=== PATIENT | male | born 1985 | race Caucasian/White ===

== ENCOUNTER 2016-12-27 11:45 | Emergency (ER) | payer OTHER ==
[~2016-12-27] VITALS: Ht 172.7 cm; Wt 92.3 kg
[2016-12-27 11:49] VITALS: TEMP 36.7; Ht 172.7 cm; Wt 92.3 kg
--- NOTE | 2016-12-27 12:12 | EMERGENCY ROOM VISIT NOTE ---
History Report prepared by [place]: Antonio Telles Under the Supervision of: Dr. Mata Hunter M.D. First contact with patient: 11:54 Chief Complaint: HEADACHE Stated Complaint: SHARP HEADACHE History of Present Illness The patient is a 31 year old [place] male with a past medical history of HLD who presents to the ED with a cc of a waxing and waning headache beginning 2300 last night. Positive photophobia. Negative vomiting, numbness, nausea, cough, fevers, chills, abdominal pain. Patient notes that he had to cut his workout yesterday in half because didn't eat lunch and felt lightheaded. He says that a few hours later had a hint of a headache, and then went out for a drink of scotch and had a glass of water. The pain proceeded to worsen late last night. The patient notes that he had Acetaminophen overnight, which helped the pain a bit. Overnight rates pain as a 9/10. Pain worsened with shaking head. He went to [facility] and sent here. Patient notes headache is getting a bit better. Source of History: patient Onset: 2300 last night Position: head Symptom Intensity: 9/10 overnight Timing: waxes/wanes Modifying Factors (Worsening): movement Associated Symptoms: No fevers, No chills, No cough, No nausea, No vomiting , No abdominal pain Note: Photophobia. Review of Systems See HPI for pertinent positives and negatives. A total of ten systems were reviewed and were otherwise negative. Past Medical & Surgical Medical Problems: (1) HLD (hyperlipidemia) Family History No significant family history Social History Smoking Status: Current Some Day Smoker Alcohol Use: occasionally Drug Use: none Marital Status: Housing Status: lives with family Occupation Status: employed Current/Historical Medications No Active Prescriptions or Reported Meds Allergies Coded Allergies: Sulfa Antibiotics (Verified Allergy, Unknown, rash, swelling, 12/27/16) Physical Exam Vital Signs Date Time Temp Pulse Resp B/P (MAP) Pulse Ox O2 Delivery O2 Flow Rate FiO2 12/27/16 14:06 68 16 123/75 99 Room Air 12/27/16 11:49 36.7 83 18 148/96 100 Room Air Physical Exam GENERAL: Awake, alert, well-appearing, NAD HENT: Normocephalic, atraumatic. EYES: Normal conjunctiva. Sclera non-icteric. NECK: Supple. No nuchal rigidity. FROM. RESPIRATORY: CTAB, no rhonchi, wheezing, crackles CARDIAC: RRR, no MRG ABDOMEN: Soft, NTND, BS+ MSK: No chest wall TTP, no LE edema. Full neck rom. NEURO: GCS 15, CN 2-12 intact, 5/5 upper and lower ext strength, no pronator drift, good finger to nose, good heel to barton, no sensory deficit, moves all 4s on command. No signs of meningismus. SKIN: No rash or jaundice noted. Medical Decision & Procedures ER Provider Diagnostic Interpretation: CT: Radiology results as stated below per my review and radiologist interpretation CT ANGIOGRAM OF THE BRAIN COMBO; CT ANGIOGRAM OF THE NECK CLINICAL HISTORY: Headache. COMPARISON STUDY: No priors. TECHNIQUE: Unenhanced axial CT scan of the brain is performed. Subsequently, following the IV administration of 94 of Optiray 320, CT angiogram of the head and neck was performed from the aortic arch to the vertex. Images are reviewed in the axial, sagittal, and coronal planes. 3-D MIPS images are created and assessed. IV contrast was administered without complication. All measurements were calculated based on NASCET criteria. A dose lowering technique was utilized adhering to the principles of ALARA. CT DOSE: 1149.55 mGy.cm FINDINGS: Brain parenchyma: The brain parenchyma is normal in appearance. There is no hemorrhage, mass effect, or evidence of acute territorial ischemia by CT criteria. There is no evidence of enhancing mass lesion on the angiogram phase images. The ventricles, sulci, and cisterns are normal in configuration. Cornell-white matter differentiation is preserved. No extra-axial fluid collection is seen. Thoracic aorta: Visualized portions of the thoracic aorta are normal in caliber. The aortic arch demonstrates standard 3-vessel anatomy. Right carotid arterial system: The right common carotid artery is widely patent, as are the right internal and external carotid arteries. Left carotid arterial system: The left common carotid artery is widely patent, as are the left internal and external carotid arteries. Vertebral arteries: Widely patent bilaterally. The right vertebral artery is dominant. The left vertebral artery is diminutive. Subclavian arteries: Widely patent bilaterally. Intracranial vasculature: There is origin of the left posterior cerebral artery The internal carotid arteries are patent at the skull base, as are the anterior and middle cerebral arteries bilaterally. The vertebrobasilar system and posterior cerebral arteries are widely patent. The right vertebral artery is dominant. There is no aneurysm, high-grade stenosis, or focal vessel cut off seen throughout the intracranial circulation. Jugular veins: Widely patent bilaterally. Dural sinuses: Patent. Lung apices: Partially visualized upper lobe lung parenchyma appears clear. Soft tissues: The visualized pharyngeal soft tissues are normal in appearance noting angiographic phase technique. The oropharyngeal airway appears widely patent. The salivary and thyroid glands are normal in appearance. No cervical lymphadenopathy is seen. Skeletal structures: The calvarium appears intact. The cervical spine is within normal limits. Sinuses and mastoids: The paranasal sinuses are clear. The mastoid air cells are well pneumatized. IMPRESSION: 1. No acute intracranial abnormality. 2. Unremarkable CT angiogram of the brain. 3. Unremarkable CT angiogram of the neck. Electronically signed by: Elliot Zepeda M.D. 12/27/2016 2:16 PM Dictated Date/Time: 12/27/2016 2:[address] ANGIOGRAM OF THE BRAIN COMBO; CT ANGIOGRAM OF THE NECK CLINICAL HISTORY: Headache. COMPARISON STUDY: No priors. TECHNIQUE: Unenhanced axial CT scan of the brain is performed. Subsequently, following the IV administration of 94 of Optiray 320, CT angiogram of the head and neck was performed from the aortic arch to the vertex. Images are reviewed in the axial, sagittal, and coronal planes. 3-D MIPS images are created and assessed. IV contrast was administered without complication. All measurements were calculated based on NASCET criteria. A dose lowering technique was utilized adhering to the principles of ALARA. CT DOSE: 1149.55 mGy.cm FINDINGS: Brain parenchyma: The brain parenchyma is normal in appearance. There is no hemorrhage, mass effect, or evidence of acute territorial ischemia by CT criteria. There is no evidence of enhancing mass lesion on the angiogram phase images. The ventricles, sulci, and cisterns are normal in configuration. Cornell-white matter differentiation is preserved. No extra-axial fluid collection is seen. Thoracic aorta: Visualized portions of the thoracic aorta are normal in caliber. The aortic arch demonstrates standard 3-vessel anatomy. Right carotid arterial system: The right common carotid artery is widely patent, as are the right internal and external carotid arteries. Left carotid arterial system: The left common carotid artery is widely patent, as are the left internal and external carotid arteries. Vertebral arteries: Widely patent bilaterally. The right vertebral artery is dominant. The left vertebral artery is diminutive. Subclavian arteries: Widely patent bilaterally. Intracranial vasculature: There is origin of the left posterior cerebral artery The internal carotid arteries are patent at the skull base, as are the anterior and middle cerebral arteries bilaterally. The vertebrobasilar system and posterior cerebral arteries are widely patent. The right vertebral artery is dominant. There is no aneurysm, high-grade stenosis, or focal vessel cut off seen throughout the intracranial circulation. Jugular veins: Widely patent bilaterally. Dural sinuses: Patent. Lung apices: Partially visualized upper lobe lung parenchyma appears clear. Soft tissues: The visualized pharyngeal soft tissues are normal in appearance noting angiographic phase technique. The oropharyngeal airway appears widely patent. The salivary and thyroid glands are normal in appearance. No cervical lymphadenopathy is seen. Skeletal structures: The calvarium appears intact. The cervical spine is within normal limits. Sinuses and mastoids: The paranasal sinuses are clear. The mastoid air cells are well pneumatized. IMPRESSION: 1. No acute intracranial abnormality. 2. Unremarkable CT angiogram of the brain. 3. Unremarkable CT angiogram of the neck. Electronically signed by: Elliot Zepeda M.D. 12/27/2016 2:16 PM Dictated Date/Time: 12/27/2016 2:06 PM Laboratory Results 12/27/16 12:40 Red Blood Count 4.96, Mean Corpuscular Volume 84.9, Mean Corpuscular Hemoglobin 28.8, Mean Corpuscular Hemoglobin Concent 34.0, Mean Platelet Volume 9.1, Neutrophils (%) (Auto) 49.3, Lymphocytes (%) (Auto) 36.1, Monocytes (%) (Auto) 10.9, Eosinophils (%) (Auto) 2.9, Basophils (%) (Auto) 0.4, Neutrophils # (Auto ) 4.60, Lymphocytes # (Auto) 3.37, Monocytes # (Auto) 1.02, Eosinophils # (Auto ) 0.27, Basophils # (Auto) 0.04 12/27/16 12:40 Test 12/27/16 12:40 12/27/16 12:47 White Blood Count 9.34 K/uL (4.8-10.8) Red Blood Count 4.96 M/uL (4.7-6.1) Hemoglobin 14.3 g/dL (14.0-18.0) Hematocrit 42.1 % (42-52) Mean Corpuscular Volume 84.9 fL (80-100) Mean Corpuscular Hemoglobin 28.8 pg (25-34) Mean Corpuscular Hemoglobin Concent 34.0 g/dl (32-36) Platelet Count 360 K/uL (130-400) Mean Platelet Volume 9.1 fL (7.4-10.4) Neutrophils (%) (Auto) 49.3 % Lymphocytes (%) (Auto) 36.1 % Monocytes (%) (Auto) 10.9 % Eosinophils (%) (Auto) 2.9 % Basophils (%) (Auto) 0.4 % Neutrophils # (Auto) 4.60 K/uL (1.4-6.5) Lymphocytes # (Auto) 3.37 K/uL (1.2-3.4) Monocytes # (Auto) 1.02 K/uL (0.11-0.59) Eosinophils # (Auto) 0.27 K/uL (0-0.5) Basophils # (Auto) 0.04 K/uL (0-0.2) RDW Standard Deviation 47.6 fL (36.4-46.3) RDW Coefficient of Variation 15.4 % (11.5-14.5) Immature Granulocyte % (Auto) 0.4 % Immature Granulocyte # (Auto) 0.04 K/uL (0.00-0.02) Prothrombin Time 10.0 SECONDS (9.0-12.0) Prothromb Time International Ratio 0.9 (0.9-1.1) Activated Partial Thromboplast Time 26.1 SECONDS (21.0-31.0) Partial Thromboplastin Ratio 1.0 Est Creatinine Clear Calc Drug Dose 132.6 ml/min Estimated GFR () 132.1 Estimated GFR (Non- 113.9 BUN/Creatinine Ratio 11.0 (10-20) Calcium Level 9.2 mg/dl (8.5-10.1) Lyme Disease IgG Antibody NEG (NEG) Lyme Disease IgM Antibody NEG (NEG) Bedside Hemoglobin 15.0 g/dl (14.0-18.0) Bedside Hematocrit 44 % (42-52) Bedside Sodium 139 mEq/L (135-144) Bedside Potassium 3.9 mEq/L (3.3-5.0) Bedside Chloride 102 mEq/L (101-112) Bedside Total CO2 27 mEq/l (24-31) Anion Gap 15.0 mmol/L (16-25) Bedside Blood Urea Nitrogen 9 mg/dl (7-18) Bedside Creatinine 0.8 mg/dl (0.6-1.3) Bedside Glucose (other) 80 mg/dl (70-99) Bedside Ionized Calcium (Sobia) 1.19 mmol/l (1.12-1.32) Laboratory results reviewed by me Medications Administered Medications (Trade) Dose Ordered Sig/Abbie Route Start Time Stop Time Status Last Admin Dose Admin Metoclopramide HCl (Reglan Inj) 10 mg NOW STAT IV 12/27/16 12:19 12/27/16 12:22 DC 12/27/16 13:09 10 MG Acetaminophen (Tylenol Tab) 1,000 mg NOW STAT PO 12/27/16 12:19 12/27/16 12:22 DC 12/27/16 13:08 1,000 MG Diphenhydramine HCl (Benadryl Inj) 50 mg NOW STAT IV 12/27/16 12:19 12/27/16 12:22 DC 12/27/16 13:09 50 MG Sodium Chloride 1,000 ml @ 999 mls/hr Q1H1M STAT IV 12/27/16 12:19 12/27/16 13:19 DC 12/27/16 13:20 999 MLS/HR Magnesium Sulfate (Magnesium Sulfate) 1 gm NOW STAT IV 12/27/16 12:19 12/27/16 12:22 DC 12/27/16 13:36 1 GM ECG Indication: other (headache) Rate (beats per minute): 65 Rhythm: normal sinus Findings: T-wave inversion (in 3 and AVF, no other TWI), other (normal intervals, normal axis, no sts changes) ED Course 1203: The patient was evaluated in room B3B. A complete history and physical exam was performed. 1359: I reevaluated the patient and he feels better. 1430: I reevaluated the patient and he is resting. Discussed results and discharge instructions: he verbalized understanding and agreement. The patient is ready for discharge. Medical Decision The patient is a 31 year old [place] male with a past medical history of HLD who presents to the ED with a cc of a waxing and waning headache beginning 2300 last night. Positive photophobia. Negative vomiting, numbness, nausea, cough, fevers, chills, abdominal pain. Differential diagnosis: Intracranial hemorrhage, intracranial mass, migraine headache, tension headache , sinusitis, meningitis Patient was seen and evaluated at the bedside. Patient did have pain after exercise so SAH was concerning; however, patient's pain was not present until after an hour after returning home from the gym. Patient was given symptomatic treatment and had CTAs of the head and neck completed. Patient's pain resolved patient was feeling much improved. Given time course w/ negative CTAs, less likely aneurysm, ICH, or SAH. Patient was given strict follow-up, discharge, return precautions as well as signs return to the emergency department. Patient was told to follow-up with his PCP as needed. Patient had no signs of meningismus had no neurologic deficits upon reassessment. Patient was able to ambulatory tolerate by mouth. Patient discharged home. Medication Reconcilliation Current Medication List: was personally reviewed by me No meds. Blood Pressure Screening Patient's blood pressure: Elevated blood pressure Blood pressure disposition: Elevated BP felt to be situational Impression Primary Impression: Encounter for smoking cessation counseling Additional Impression: Headache Scribe Attestation The scribe's documentation has been prepared under my direction and personally reviewed by me in its entirety. I confirm that the note above accurately reflects all work, treatment, procedures, and medical decision making performed by me. Departure Information Dispostion Home / Self-Care Prescriptions Ondasetron Odt (ZOFRAN ODT) 4 Mg Tab 4 MG SL Q6H for Nausea, #6 TAB Prov: Mata Hunter M.D. 12/27/16 Referrals No Doctor, Assigned (PCP) Patient Instructions ED Smoking Cessation, Headache Pain, My [facility] Additional Instructions Please return to the emergency department if you have worsening or recurrent symptoms not amenable to at-home treatment. Please call for a follow-up appointment with her primary care physician. Please take your medications as prescribed. If you have other concerns and/or complaints please feel free to also call your primary care physician's office or return the ED for further evaluation, management, and treatment. You may take 600 mg Ibuprofen every 6 hours as needed for pain with food for no more than 2 consecutive days. You may take tylenol 1000mg every 6 hours as needed for pain. You may take motrin and tylenol separately or at the same time. Take zofran for nausea. You have been examined and treated today on an emergency basis only. This is not a substitute for, or an effort to provide, complete comprehensive medical care. It is impossible to recognize and treat all injuries or illnesses in a single emergency department visit. It is therefore important that you follow up closely with [facility]. Call as soon as possible for an appointment. Thank you for your time and consideration. I look forward to speaking with you again soon. Please don't hesitate to call us if you have any questions. Work Instructions Return To Work: 1 day Problem Qualifiers Additional Impression: Headache Headache type: unspecified Headache chronicity pattern: acute headache Intractability: not intractable Qualified Codes: R51 - Headache
[2016-12-27] MEDS ORDERED: MAGNESIUM SULFATE 1GM / D5W 1 GM BAG IV STA (12:19)
[2016-12-27] MEDS ORDERED: SODIUM CHLORIDE 0.9% 1000ML 1,000 ML IV STA (12:19)
[2016-12-27] MEDS ORDERED: ACETAMINOPHEN 500 MG TAB PO STA (12:19)
[2016-12-27] MEDS ORDERED: DiphenhydrAMINE HCL 50 MG/ML VIAL IV STA (12:19)
[2016-12-27] MEDS ORDERED: METOCLOPRAMIDE HCL INJ 5 MG/ML 2 ML VIAL IV STA (12:19)
[2016-12-27] MEDS ORDERED: OPTIRAY 320 IV PRN (12:30)
[2016-12-27 13:00] LABS: ISTAT CREATININE 0.8 mg/dl (0.6-1.3); ISTAT IONIZED CALCIUM 1.19 mmol/l (1.12-1.32)
[2016-12-27 13:14] LABS: BASO % 0.4 %; BASO ABS # 0.04 K/uL (0-0.2); COMPLETE YES; EOS % 2.9 %; HEMATOCRIT 42.1 % (42-52); IG% 0.4 %; LYMPH % 36.1 %; LYMPH ABS # 3.37 K/uL (1.2-3.4); MEAN CELL VOLUME 84.9 fL (80-100); MEAN CORPUSCULAR HEMOGLOBIN 28.8 pg (25-34); MEAN PLATELET VOLUME 9.1 fL (7.4-10.4); MONO % 10.9 %; NEUT % 49.3 %; PLATELET COUNT 360 K/uL (130-400); RED BLOOD COUNT 4.96 M/uL (4.7-6.1); WHITE BLOOD COUNT 9.34 K/uL (4.8-10.8)
[2016-12-27 13:29] LABS: INR 0.9 (0.9-1.1)
[2016-12-27 13:37] LABS: CALCIUM 9.2 mg/dl (8.5-10.1); CREATININE 0.89 mg/dl (0.60-1.40); POTASSIUM 3.9 mmol/L (3.5-5.1)
[2016-12-27 14:15] LABS: LYME DISEASE AB IGG NEG (NEG); LYME DISEASE AB IGM NEG (NEG)
--- NOTE | 2016-12-27 14:18 | DIAGNOSTIC IMAGING REPORT ---
CT ANGIOGRAM OF THE BRAIN COMBO; CT ANGIOGRAM OF THE NECK CLINICAL HISTORY: Headache. COMPARISON STUDY: No priors. TECHNIQUE: Unenhanced axial CT scan of the brain is performed. Subsequently, following the IV administration of 94 of Optiray 320, CT angiogram of the head and neck was performed from the aortic arch to the vertex. Images are reviewed in the axial, sagittal, and coronal planes. 3-D MIPS images are created and assessed. IV contrast was administered without complication. All measurements were calculated based on NASCET criteria. A dose lowering technique was utilized adhering to the principles of ALARA. CT DOSE: 1149.55 mGy.cm FINDINGS: Brain parenchyma: The brain parenchyma is normal in appearance. There is no hemorrhage, mass effect, or evidence of acute territorial ischemia by CT criteria. There is no evidence of enhancing mass lesion on the angiogram phase images. The ventricles, sulci, and cisterns are normal in configuration. Cornell-white matter differentiation is preserved. No extra-axial fluid collection is seen. Thoracic aorta: Visualized portions of the thoracic aorta are normal in caliber. The aortic arch demonstrates standard 3-vessel anatomy. Right carotid arterial system: The right common carotid artery is widely patent, as are the right internal and external carotid arteries. Left carotid arterial system: The left common carotid artery is widely patent, as are the left internal and external carotid arteries. Vertebral arteries: Widely patent bilaterally. The right vertebral artery is dominant. The left vertebral artery is diminutive. Subclavian arteries: Widely patent bilaterally. Intracranial vasculature: There is origin of the left posterior cerebral artery The internal carotid arteries are patent at the skull base, as are the anterior and middle cerebral arteries bilaterally. The vertebrobasilar system and posterior cerebral arteries are widely patent. The right vertebral artery is dominant. There is no aneurysm, high-grade stenosis, or focal vessel cut off seen throughout the intracranial circulation. Jugular veins: Widely patent bilaterally. Dural sinuses: Patent. Lung apices: Partially visualized upper lobe lung parenchyma appears clear. Soft tissues: The visualized pharyngeal soft tissues are normal in appearance noting angiographic phase technique. The oropharyngeal airway appears widely patent. The salivary and thyroid glands are normal in appearance. No cervical lymphadenopathy is seen. Skeletal structures: The calvarium appears intact. The cervical spine is within normal limits. Sinuses and mastoids: The paranasal sinuses are clear. The mastoid air cells are well pneumatized. IMPRESSION: 1. No acute intracranial abnormality. 2. Unremarkable CT angiogram of the brain. 3. Unremarkable CT angiogram of the neck. Electronically signed by: Elliot Zepeda M.D. 12/27/2016 2:16 PM Dictated Date/Time: 12/27/2016 2:06 PM
[2016-12-27] MEDS ORDERED: ONDA4TAB10 SL (14:45)
[2016-12-27 14:57] VITALS: BP 115/71; PULSE 67; O2SAT 99
== END 2016-12-27 14:58 | disposition home or self-care (01) ==
LOC: C.EDB 11:47
DX: R51 Headache (principal); F17.210 Nicotine dependence, cigarettes, uncomplicated; H53.149 Visual discomfort, unspecified

== ENCOUNTER → 2017-06-03 | Outpatient (CLI) | payer OTHER ==
[~2017-06-03] MED LIST: ONDA4TAB10 SL
--- NOTE | 2017-06-03 10:43 | DIAGNOSTIC IMAGING REPORT ---
C-SPINE ROUTINE 4 OR 5 VIEWS CLINICAL HISTORY: Neck pain. Left upper extremity pain. No recent trauma. COMPARISON STUDY: CT atrophy of the neck December 27, 2016. FINDINGS: There is slight reversal of the normal cervical lordosis. Vertebral body heights are maintained. There is no fracture or suspicious lesion. Disc spaces are preserved. There is mild multilevel endplate osteophytosis. Bony neural foramen are intact. IMPRESSION: 1. No cervical spine fracture or subluxation. 2. Preserved disc spaces with minimal multilevel endplate osteophytosis. Mild multilevel degenerative changes of the cervical spine. Electronically signed by: Jose Enrique Herrera M.D. 06/03/2017 10:42 AM Dictated Date/Time: 06/03/2017 10:41 AM
[2017-06-03 11:14] LABS: BASO % 0.4 %; BASO ABS # 0.03 K/uL (0-0.2); EOS % 4.5 %; EOS ABS # 0.36 K/uL (0-0.5); HEMATOCRIT 41.8 % (42-52); HEMOGLOBIN 13.9 g/dL (14.0-18.0); IG# 0.02 K/uL (0.00-0.02); LYMPH % 37.3 %; MEAN CELL VOLUME 84.8 fL (80-100); MEAN CORPUSCULAR HEMOGLOBIN 28.2 pg (25-34); MEAN CORPUSCULAR HGB CONC 33.3 g/dl (32-36); MEAN PLATELET VOLUME 9.1 fL (7.4-10.4); MONO % 8.6 %; MONO ABS # 0.69 K/uL (0.11-0.59); NEUT ABS # 3.95 K/uL (1.4-6.5); PLATELET COUNT 337 K/uL (130-400); RED CELL DISTRIBUTION WIDTH CV 14.2 % (11.5-14.5); RED CELL DISTRIBUTION WIDTH SD 43.7 fL (36.4-46.3); WHITE BLOOD COUNT 8.05 K/uL (4.8-10.8)
[2017-06-03 11:48] LABS: ALBUMIN 3.7 gm/dl (3.4-5.0); ALT/SGPT 48 U/L (12-78); BLOOD UREA NITROGEN 7 mg/dl (7-18); CALCIUM 8.6 mg/dl (8.5-10.1); CARBON DIOXIDE 29 mmol/L (21-32); CHOLESTEROL 215 mg/dl (0-200); CREATININE 0.78 mg/dl (0.60-1.40); GLUCOSE 86 mg/dl (70-99); POTASSIUM 4.1 mmol/L (3.5-5.1); SODIUM 138 mmol/L (136-145)
[2017-06-03 11:58] LABS: ALKALINE PHOSPHATASE 85 U/L (45-117); AST/SGOT 31 U/L (15-37); LDL CHOLESTEROL CALCULATED 122 mg/dl
== END | disposition home or self-care (01) ==
LOC: C.LAB 09:24
PROVIDERS: ATTEND Nurse Practitioner Adult Health
DX: M54.2 Cervicalgia (principal)

== ENCOUNTER 2017-07-21 17:53 | Emergency (ER) | payer OTHER ==
[~2017-07-21] VITALS: Ht 172.7 cm; Wt 95.9 kg
[2017-07-21 18:12] VITALS: TEMP 36.7; Ht 172.7 cm; Wt 95.9 kg
[2017-07-21] MEDS ORDERED: ONDANSETRON INJ 2 MG/ML 2 ML VIAL IV STA (20:10)
[2017-07-21] MEDS ORDERED: SODIUM CHLORIDE 0.9% 500ML 500 ML IV STA (20:10)
[2017-07-21] MEDS ORDERED: DICYCLOMINE HCL 10 MG/ML 2 ML AMP IM ONE (20:15)
--- NOTE | 2017-07-21 20:15 | EMERGENCY ROOM VISIT NOTE ---
History Report prepared by [place]: Fadi Hill Under the Supervision of: Dr. Mata Hunter M.D. First contact with patient: 19:45 Chief Complaint: GI ASSESSMENT Stated Complaint: BLOOD IN STOOL,ABDOMEN CRAMPS Nursing Triage Summary: lower abdominal pain. having intermittent blood in stool for the past 3 weeks History of Present Illness The patient is a 31 year old male with a past medical history of HLD who presents to the ED with a cc of intermittent bloody stools beginning three weeks ago. He rates his discomfort as a 6/10 in severity. The patient states he went to his physician for his symptoms who did blood work. He reports his blood work showed his RBC went from 30 to 11 units and his platelet count went up. The patient states he went to get another blood test today with Hematology. He reports his construction foreman told him he was concerned with IBS and reported his iron levels were low. The patient states he went home and went to have a bowel movement today when he noticed the red blood was more prominent. The patient states he has had 8 bowel movements since 1400. Positive recent antibiotic use, chills, and lower abdominal pain. Negative blood thinning medication, urinary symptoms, nausea, vomiting, family history of colon cancer, recent travel, sick contact, surgeries, IBS history, and diverticulitis history. Source of History: patient Onset: three weeks ago Position: other (global) Symptom Intensity: 6/10 Quality: other (red blood) Timing: intermittent Associated Symptoms: + chills, + abdominal pain, No nausea, No vomiting, No urinary symptoms Review of Systems See HPI for pertinent positives and negatives. A total of ten systems were reviewed and were otherwise negative. Past Medical & Surgical Medical Problems: (1) HLD (hyperlipidemia) Family History No significant family history Social History Smoking Status: Never Smoker Alcohol Use: occasionally Drug Use: none Marital Status: Housing Status: lives with family Occupation Status: employed Allergies Coded Allergies: Sulfa Antibiotics (Verified Allergy, Unknown, rash, swelling, 12/27/16) Physical Exam Vital Signs Date Time Temp Pulse Resp B/P (MAP) Pulse Ox O2 Delivery O2 Flow Rate FiO2 07/21/17 22:54 94 18 131/69 96 Room Air 07/21/17 20:32 71 18 124/66 99 Room Air 07/21/17 18:12 36.7 109 18 112/66 100 Room Air Physical Exam GENERAL: Wearing glasses, awake, alert, well-appearing, NAD HENT: Normocephalic, atraumatic. EYES: Normal conjunctiva. Sclera non-icteric. NECK: Supple. No nuchal rigidity. FROM. RESPIRATORY: CTAB, no rhonchi, wheezing, crackles CARDIAC: RRR, no MRG ABDOMEN: Soft, suprapubic and left lower quadrant abdominal tenderness, ND, BS+ , negative obturator's, negative psoas. MSK: No chest wall TTP, no LE edema NEURO: GCS 15, CN 2-12 intact, moves all 4s on command SKIN: No rash or jaundice noted. RECTAL: Bright red blood. Heme positive. Medical Decision & Procedures ER Provider Diagnostic Interpretation: Radiology results as stated below per my review and radiologist interpretation: ABD/PELVIS IV CONTRAST ONLY CLINICAL HISTORY: 31 years-old Male presenting with bloody stool, diarrhea 4 weeks, abx use, suprapub/LLQ pain. TECHNIQUE: Multidetector CT of the abdomen and pelvis was performed after the administration of intravenous contrast. IV contrast: 116 mL of Optiray 320. A dose lowering technique was used consistent with the principles of ALARA (as low as reasonably achievable). COMPARISON: None. CT DOSE (mGy.cm): The estimated cumulative dose is 593.58 mGy.cm. FINDINGS: Gas Examiner topogram: Unremarkable. Lung bases: Minimal basilar opacities, likely atelectasis. Focal wedgelike opacity at the medial basal left lower lobe with venous drainage to the azygos vein likely implying a pulmonary sequestration. Normal heart size. No pericardial or pleural effusion. Liver: Normal morphology. No liver lesion. Patent hepatic vasculature. Biliary: No intrahepatic or extrahepatic biliary ductal dilatation. Normal gallbladder. Pancreas: Normal. Spleen: Normal. Adrenal glands: Normal. Kidneys and ureters: 9 mm dense lesion in the interpolar region of the right kidney (series 3 image 162), indeterminate. Remaining renal parenchyma normal. No nephrolithiasis. No hydronephrosis. No perinephric fat stranding. Ureters normal. Bladder: Incompletely evaluated secondary to underdistention. Pelvic organs: Prostate and seminal vesicles normal. Bowel: Mild wall thickening of the descending colon to the level of the rectum suggested. Mild wall thickening of the hepatic flexure. No pericolonic or perirectal fat infiltration. No bowel obstruction. Small bowel is normal-appearing. The appendix is normal. Peritoneal cavity: No free fluid or intraperitoneal gas. Lymph nodes: No enlarged lymph nodes in the abdomen or pelvis. Vasculature: Aorta and IVC patent and normal in caliber. Abdominal wall: Normal. Musculoskeletal: Normal. IMPRESSION: 1. Findings suggestive of mild colitis involving the descending colon to the rectum. Potential involvement of the hepatic flexure though the appearance may be due to underdistention. 2. 9 mm indeterminate right renal lesion. This may represent a hemorrhagic or proteinaceous cyst though a solid lesion cannot be excluded. Renal ultrasound to be considered for further evaluation. Electronically signed by: Nico Mace M.D. 07/21/2017 9:14 PM Dictated Date/Time: 07/21/2017 9:09 PM Laboratory Results 07/21/17 20:32 Red Blood Count 3.67, Mean Corpuscular Volume 79.6, Mean Corpuscular Hemoglobin 26.4, Mean Corpuscular Hemoglobin Concent 33.2, Mean Platelet Volume 8.0, Neutrophils (%) (Auto) 45.5, Lymphocytes (%) (Auto) 36.8, Monocytes (%) (Auto) 9.3, Eosinophils (%) (Auto) 7.9, Basophils (%) (Auto) 0.2, Neutrophils # (Auto) 3.94, Lymphocytes # (Auto) 3.19, Monocytes # (Auto) 0.81, Eosinophils # (Auto) 0.69, Basophils # (Auto) 0.02 07/21/17 20:32 Test 07/21/17 20:32 07/21/17 22:10 07/21/17 23:08 White Blood Count 8.68 K/uL (4.8-10.8) Red Blood Count 3.67 M/uL (4.7-6.1) Hemoglobin 9.7 g/dL (14.0-18.0) Hematocrit 29.2 % (42-52) Mean Corpuscular Volume 79.6 fL (80-100) Mean Corpuscular Hemoglobin 26.4 pg (25-34) Mean Corpuscular Hemoglobin Concent 33.2 g/dl (32-36) Platelet Count 409 K/uL (130-400) Mean Platelet Volume 8.0 fL (7.4-10.4) Neutrophils (%) (Auto) 45.5 % Lymphocytes (%) (Auto) 36.8 % Monocytes (%) (Auto) 9.3 % Eosinophils (%) (Auto) 7.9 % Basophils (%) (Auto) 0.2 % Neutrophils # (Auto) 3.94 K/uL (1.4-6.5) Lymphocytes # (Auto) 3.19 K/uL (1.2-3.4) Monocytes # (Auto) 0.81 K/uL (0.11-0.59) Eosinophils # (Auto) 0.69 K/uL (0-0.5) Basophils # (Auto) 0.02 K/uL (0-0.2) RDW Standard Deviation 39.4 fL (36.4-46.3) RDW Coefficient of Variation 13.5 % (11.5-14.5) Immature Granulocyte % (Auto) 0.3 % Immature Granulocyte # (Auto) 0.03 K/uL (0.00-0.02) Hypochromasia PRESENT Prothrombin Time 10.0 SECONDS (9.0-12.0) Prothromb Time International Ratio 1.0 (0.9-1.1) Activated Partial Thromboplast Time 23.6 SECONDS (21.0-31.0) Partial Thromboplastin Ratio 0.9 Anion Gap 7.0 mmol/L (3-11) Est Creatinine Clear Calc Drug Dose 126.5 ml/min Estimated GFR () 123.1 Estimated GFR (Non- 106.2 BUN/Creatinine Ratio 9.3 (10-20) Calcium Level 8.4 mg/dl (8.5-10.1) Phosphorus Level 4.3 mg/dl (2.5-4.9) Magnesium Level 1.9 mg/dl (1.8-2.4) Total Bilirubin 0.2 mg/dl (0.2-1) Direct Bilirubin < 0.1 mg/dl (0-0.2) Aspartate Amino Transf (AST/SGOT) 20 U/L (15-37) Alanine Aminotransferase (ALT/SGPT) 28 U/L (12-78) Alkaline Phosphatase 94 U/L (45-117) Total Protein 7.3 gm/dl (6.4-8.2) Albumin 3.2 gm/dl (3.4-5.0) Lipase 302 U/L (73-393) Urine Color YELLOW Urine Appearance CLEAR (CLEAR) Urine pH 5.0 (4.5-7.5) Urine Specific [place] > 1.045 (1.000-1.030) Urine Protein NEG (NEG) Urine Glucose (UA) NEG (NEG) Urine Ketones NEG (NEG) Urine Occult Blood NEG (NEG) Urine Nitrite NEG (NEG) Urine Bilirubin NEG (NEG) Urine Urobilinogen NEG (NEG) Urine Leukocyte Esterase NEG (NEG) Laboratory results reviewed by me Medications Administered Medications (Trade) Dose Ordered Sig/Abbie Route Start Time Stop Time Status Last Admin Dose Admin Sodium Chloride 500 ml @ 999 mls/hr Q31M STAT IV 07/21/17 20:10 07/21/17 20:40 DC 07/21/17 20:10 999 MLS/HR ED Course 2001: The patient was evaluated in room B10. A complete history and physical exam was performed. 2148: I discussed the patients case with Dr. Walton, [facility]. He reports the patient needs to follow up next week for a scope and should return to the ER if symptoms worsen. 2208: I reevaluated the patient. Discussed results and discharge instructions: He verbalized understanding and agreement. The patient is ready for discharge. Medical Decision Nursing notes reviewed. Ancillary studies and prior records reviewed. The patient is a 31 year old male with a past medical history of HLD who presents to the ED with a cc of intermittent bloody stools beginning three weeks ago. The patient's presentation and history were concerning for etiologies such as diverticulosis, AVM, coagulopathy, colitis, inflammatory bowel disease, malignancy, Emily-Mancini tear, esophagitis, peptic ulcer disease, variceal bleed, gastritis, epistaxis, fissure, hemorrhoids, as well as others were entertained. Patient was seen and evaluated the bedside. Patient had had 4 weeks of some associated diarrhea and had noticed some increased bright red blood per rectum. Patient denies any prior history of IBD or family history of IBD, colon cancer , or polyposis. Patient has not had a colonoscopy in the past. Patient was seen by Dr. Greco with hematology was scheduled for some IV iron treatments infusions as the patient does have a low MCV and some anemia. Patient does have bright red blood per rectum as evidenced. The patient was initially tachycardic. Patient does not take any blood thinning medications. Patient has been on some amoxicillin. Patient did have blood work completed along with CT of the abdomen pelvis. Patient's blood work did show worsening anemia. Patient is dropped approximately four-point and his hemoglobin since the end of May. The patient has felt fatigued but denies any dizziness, lightheadedness, presyncope or syncope. I did discuss the case with the on-call panel beater who agreed that the patient should be seen and would benefit from a colonoscopy. I do not believe the patient requires a stay at this time as the patient's vital signs are stable. He was given strict follow-up as well as return precautions and warning signs for which to return. Patient was deemed suitable for outpatient follow-up and treatment at this time. Patient was given strict follow-up, discharge, and return precautions. All questions were answered. Patient was deemed suitable for outpatient follow-up at this time. Patient agreed with the plan of care and was safely discharged home. Medication Reconcilliation Current Medication List: was personally reviewed by me Blood Pressure Screening Patient's blood pressure: Normal blood pressure Consults Time Called: 2140 Consulting Physician: Dr. Walton [facility] Returned Call: 2140 I discussed the patients case with Dr. Walton [facility]. He reports the patient needs to follow up next week for a scope and should return to the ER if symptoms worsen. Impression Primary Impression: Colitis Additional Impressions: Rectal bleeding Anemia Scribe Attestation The scribe's documentation has been prepared under my direction and personally reviewed by me in its entirety. I confirm that the note above accurately reflects all work, treatment, procedures, and medical decision making performed by me. Departure Information Dispostion Home / Self-Care Referrals Janny Mina .KEN (PCP) Patient Instructions Bleeding Rectal, My [facility] Additional Instructions Please return to the emergency department if you have worsening or recurrent symptoms not amenable to at-home treatment. Please call for a follow-up appointment with her primary care physician. Please take your medications as prescribed. If you have other concerns and/or complaints please feel free to also call your primary care physician's office or return the ED for further evaluation, management, and treatment. Please return if you have any dizziness, lightheadedness, shortness of breath, large-volume bright red blood per rectum or clots. Please follow-up with your panel beater. Take your medications as prescribed. You have been examined and treated today on an emergency basis only. This is not a substitute for, or an effort to provide, complete comprehensive medical care. It is impossible to recognize and treat all injuries or illnesses in a single emergency department visit. It is therefore important that you follow up closely with [facility], your PCP, and/or your specialist(s). Call as soon as possible for an appointment. Thank you for your time and consideration. I look forward to speaking with you again soon. Please don't hesitate to call us if you have any questions. Problem Qualifiers Additional Impressions: Anemia Anemia type: unspecified type Qualified Codes: D64.9 - Anemia, unspecified
[2017-07-21 20:44] LABS: HEMATOCRIT 29.2 % (42-52); HEMOGLOBIN 9.7 g/dL (14.0-18.0); MEAN CELL VOLUME 79.6 fL (80-100); MEAN CORPUSCULAR HEMOGLOBIN 26.4 pg (25-34); MEAN CORPUSCULAR HGB CONC 33.2 g/dl (32-36); PLATELET COUNT 409 K/uL (130-400); RED CELL DISTRIBUTION WIDTH CV 13.5 % (11.5-14.5); RED CELL DISTRIBUTION WIDTH SD 39.4 fL (36.4-46.3); WHITE BLOOD COUNT 8.68 K/uL (4.8-10.8)
[2017-07-21 20:56] LABS: PTT PATIENT 23.6 SECONDS (21.0-31.0)
[2017-07-21 21:05] LABS: BASO % 0.2 %; BASO ABS # 0.02 K/uL (0-0.2); EOS % 7.9 %; EOS ABS # 0.69 K/uL (0-0.5); IG# 0.03 K/uL (0.00-0.02); LYMPH % 36.8 %; LYMPH ABS # 3.19 K/uL (1.2-3.4); MONO % 9.3 %; MONO ABS # 0.81 K/uL (0.11-0.59); NEUT % 45.5 %; NEUT ABS # 3.94 K/uL (1.4-6.5)
[2017-07-21 21:07] LABS: ALBUMIN 3.2 gm/dl (3.4-5.0); BLOOD UREA NITROGEN 9 mg/dl (7-18); CALCIUM 8.4 mg/dl (8.5-10.1); CARBON DIOXIDE 25 mmol/L (21-32); CREATININE 0.95 mg/dl (0.60-1.40); GLUCOSE 90 mg/dl (70-99); LIPASE 302 U/L (73-393); POTASSIUM 3.9 mmol/L (3.5-5.1); SODIUM 140 mmol/L (136-145)
[2017-07-21 21:11] LABS: ALKALINE PHOSPHATASE 94 U/L (45-117); ALT/SGPT 28 U/L (12-78); AST/SGOT 20 U/L (15-37); PHOSPHORUS 4.3 mg/dl (2.5-4.9); TOTAL PROTEIN 7.3 gm/dl (6.4-8.2)
[2017-07-21] MEDS ORDERED: OPTIRAY 320 IV PRN (21:15)
--- NOTE | 2017-07-21 21:16 | DIAGNOSTIC IMAGING REPORT ---
ABD/PELVIS IV CONTRAST ONLY CLINICAL HISTORY: 31 years-old Male presenting with bloody stool, diarrhea 4 weeks, abx use, suprapub/LLQ pain. TECHNIQUE: Multidetector CT of the abdomen and pelvis was performed after the administration of intravenous contrast. IV contrast: 116 mL of Optiray 320. A dose lowering technique was used consistent with the principles of ALARA (as low as reasonably achievable). COMPARISON: None. CT DOSE (mGy.cm): The estimated cumulative dose is 593.58 mGy.cm. FINDINGS: Waiter Waitress topogram: Unremarkable. Lung bases: Minimal basilar opacities, likely atelectasis. Focal wedgelike opacity at the medial basal left lower lobe with venous drainage to the azygos vein likely implying a pulmonary sequestration. Normal heart size. No pericardial or pleural effusion. Liver: Normal morphology. No liver lesion. Patent hepatic vasculature. Biliary: No intrahepatic or extrahepatic biliary ductal dilatation. Normal gallbladder. Pancreas: Normal. Spleen: Normal. Adrenal glands: Normal. Kidneys and ureters: 9 mm dense lesion in the interpolar region of the right kidney (series 3 image 162), indeterminate. Remaining renal parenchyma normal. No nephrolithiasis. No hydronephrosis. No perinephric fat stranding. Ureters normal. Bladder: Incompletely evaluated secondary to underdistention. Pelvic organs: Prostate and seminal vesicles normal. Bowel: Mild wall thickening of the descending colon to the level of the rectum suggested. Mild wall thickening of the hepatic flexure. No pericolonic or perirectal fat infiltration. No bowel obstruction. Small bowel is normal-appearing. The appendix is normal. Peritoneal cavity: No free fluid or intraperitoneal gas. Lymph nodes: No enlarged lymph nodes in the abdomen or pelvis. Vasculature: Aorta and IVC patent and normal in caliber. Abdominal wall: Normal. Musculoskeletal: Normal. IMPRESSION: 1. Findings suggestive of mild colitis involving the descending colon to the rectum. Potential involvement of the hepatic flexure though the appearance may be due to underdistention. 2. 9 mm indeterminate right renal lesion. This may represent a hemorrhagic or proteinaceous cyst though a solid lesion cannot be excluded. Renal ultrasound to be considered for further evaluation. Electronically signed by: Nico Mace M.D. 07/21/2017 9:14 PM Dictated Date/Time: 07/21/2017 9:09 PM
[2017-07-21 22:54] VITALS: BP 131/69; PULSE 94; O2SAT 96
== END 2017-07-21 23:08 | disposition home or self-care (01) ==
LOC: C.EDB 17:54
DX: K52.9 Noninfective gastroenteritis and colitis, unspecified (principal); D64.9 Anemia, unspecified; E78.5 Hyperlipidemia, unspecified; Z88.2 Allergy status to sulfonamides

== ENCOUNTER → 2017-08-02 | Outpatient (CLI) | payer OTHER ==
--- NOTE | 2017-08-07 11:37 | POLYSOMNOGRAPH REPORT ---
CLINICAL DATA: A 31-year-old male with BMI of 32.4, referred by Janny Mina for fatigue, a family history of sleep apnea, a crowded airway, and obesity. On the evening of August 02, 2017, a home sleep apnea test was performed using a Jean Paul type III monitor. RECORDING RESULTS: Total recording time was 10 hours. The patient's monitoring time and estimated sleep time was 6.8 hours. RESPIRATORY DATA: Severe sleep apnea was documented. The GIGI was 43.5. There were 22 obstructive, 1 mixed, and 1 central apneic episodes. There were 271 hypopneic episodes. The longest respiratory event was 52 seconds. OXIMETRY DATA: Nocturnal hypoxemia was seen. Oxygen kenrick was 65%. Mean saturation was 91%. Time below 89% was 85 minutes. HEART RATE DATA: Heart rates ranged from 78-97 beats per minute. SNORING DATA: Snoring was recorded throughout the night. IMPRESSION: Severe sleep apnea/hypopnea with nocturnal hypoxemia. RECOMMENDATIONS: The patient may benefit with a repeat sleep study with CPAP, use of auto CPAP or sleep medicine consultation. Clinical correlation is needed. MARC
== END | disposition home or self-care (01) ==
LOC: C.NEUR 08:59
PROVIDERS: ATTEND Nurse Practitioner Adult Health
DX: R53.83 Other fatigue (principal); G43.909 Migraine, unspecified, not intractable, without status migrainosus; R06.81 Apnea, not elsewhere classified; M54.2 Cervicalgia; E78.5 Hyperlipidemia, unspecified; E03.9 Hypothyroidism, unspecified; K21.9 Gastro-esophageal reflux disease without esophagitis

== ENCOUNTER → 2017-08-09 | Outpatient (CLI) | payer OTHER ==
[2017-08-14 13:16] LABS: QUANTIF MITOGEN-NIL 7.75 IU/ML; QUANTIFERON NEGATIVE (NEGATIVE); QUANTIFERON NIL 0.12 IU/ML
== END | disposition home or self-care (01) ==
LOC: C.LABSPEC 16:39
PROVIDERS: ATTEND Internal Medicine Gastroenterology
DX: K51.90 Ulcerative colitis, unspecified, without complications (principal)

== ENCOUNTER → 2017-08-28 | Outpatient (CLI) | payer OTHER ==
--- NOTE | 2017-08-29 06:23 | PAP/PSG TECHNICIAN REPORT ---
[facility] Battery Repairer Polysomnogram Report Study name: None Report date: 08/29/2017 Study date: 08/28/2017 Referring Physician: KEN Em Name: LOW MARTINS Interpreting Physician: Pollo Garcia M.D. Date of : 1985 Battery Repairer: JENNIFFER Maurer. Sex: Male Age: 31 StudyType: PSG PAP Weight: 205 lbs Height: 31 years, Height 5' 8" Neck Circum: 16.5inches BMI: 31.17 Medications: none listed Patient History Study started on room air with 4cwp cpap in room #8. 31 yr old male here tonight for a new titration study. He had a HST that had an GIGI of 43.5. His ESS=12/24.Neck circ=16.5inches Parameters Monitored NPSG: E1-M2, E2-M1, Fp1-M2, Fp2-M1, F3-M2, F4-M2, F4-M1, C3-M2, C4-M2, C4-M1, O1-M2, O2-M2, O2-M1, T3-M2, T4-M1, P3-M2, P4-M1, CHIN1, CHIN2, HR, EKG, Legs, PFLOW, SNOR, FLOW, CFLOW, Tidal Volume, THOR, ABDO, SpO2, PLTH, CPRESS, ETCO2 Wave, ETCO2, pH Sleep Architecture Sleep Stages Time at Lights Off 10:33:50 PM STAGES Time (min.) TST (%) Time at Lights On 5:49:20 AM Wake 18.5 -- Total Recording Time (TRT) 435.50 min. N1 21.5 5 Total Sleep Period (TSP) 432.0 min. N2 201.0 48 Total Sleep Time (TST) 417.0min. N3 77.5 19 Awake Time 18.5 min. REM 117.0 28 Wake after Sleep Onset 15.0 min. Sleep Efficiency (SE) 96 % Sleep Onset Latency (VLADIMIR) 3.5 min. Number of Stage 1 Shifts None Awakenings 14 Stage Changes 83 Number of REM periods 13 REM 117.0 28 REM Latency 81.5 min. NREM 300.0 72 Body Position Analysis Supine Right Left Side Prone Vertical Total Sleep Time (min.) 337.2 62.6 32.0 94.58 0.0 0.0 Total Sleep Time (%) 77% 15% 8% 23 0% N/A% Total Sleep Time REM (min.) 95.4 21.0 0.6 None 0.0 0.0 Total Sleep Time NREM (min.) 227.0 41.6 31.4 None 0.0 0.0 Intermittent Wake (min.) 14.8 3.2 0.5 None 0.0 0.0 Total Sleep Period (%) 77% None None None None None Arousals Myoclonus (PLM) * Events Count Index Events Count Index Spontaneous 24 3 Events Awake (PLMW) 20 64.9 Respiratory 5 0.7 Events Asleep w/ Arousal (PLMA) 2 0.3 PLM 2 0 Events Asleep w/o Arousal (PLMS) 77 11.1 Snoring 4 1 Total Asleep 79 11.4 Total 35 5 Total 99 14 Respiratory Analysis * CA OA MA CH H RERA Total Count 3 0 0 0 41 1 44 Index 0.4 0.0 0.0 0 5.9 0 6.5 Mean Duration 13.1 0.0 0.0 0.00 20.2 17.2 19.7 Longest Duration 15.8 0.0 0.0 0.00 0.0 17.2 67.5 Respiratory Event Summary Total Supine ~Supine Right Left Prone REM NREM Apneas Count 3 2 1 1 0 N/A 2 1 Index 0.4 0 1 1.0 0.0 N/A 1 0 Hypopneas (4% Desat) Count 41 35 6 5 1 N/A 17 24 Index 5.9 6.5 4 4.8 1.9 N/A 8.7 4.8 Apneas & All Hypopneas Count 44 37 7 6 1 N/A 19 25 Index 6.3 7 4 6 2 N/A 9.7 5.0 Respiratory Events (Speech Language Assistant+All Hyp+RERA) Count 44 38 7 6 1 N/A 19 25 Index 6.5 7 4 5.8 1.9 N/A 10.3 5.0 Respiratory Related Arousal Count 5 38 0 0 0 N/A 1 4 Index 0.7 1 0 0 0 N/A 1 1 Snoring Analysis Supine Right Left Prone REM NREM Total Snore duration 11.7 min Snores count 492 9 0 N/A 25 476 501 Snore mean duration 1.4 Sec Snores index 92 9 0 N/A 12.8 95.2 72.1 TST with snoring (%) 2.8% Desaturation Event Summary: Minimum %SpO2 Event Count Mean/Min/Max Duration(sec.) Desaturation Index % Time In Bed > 90 72 25.5 / 7.8 / 60.0 11.8 84.4 86 - 90 6 20.9 / 15.5 / 32.3 5.3 15.5 81 - 85 1 20.5 / 20.5 / 20.5 142.6 0.1 76 - 80 0 N/A 0.0 0.0 71 - 75 0 N/A 0.0 0.0 66 - 70 0 N/A 0.0 0.0 61 - 65 0 N/A 0.0 0.0 56 - 60 0 N/A 0.0 0.0 51 - 55 0 N/A 0.0 0.0 < 50 0 N/A 0.0 0.0 Total REM NREM Awake <50% 0.0 min. 0.0 min. 0.0 min. 0.0 min. 51 - 60% 0.0 min. 0.0 min. 0.0 min. 0.0 min. 61 - 70% 0.0 min. 0.0 min. 0.0 min. 0.0 min. 71 - 80% 0.0 min. 0.0 min. 0.0 min. 0.0 min. 81 - 90% 67.8 min. 5.1 min. 60.3 min. 2.3 min. 91 - 100% 367.3 min. 111.9 min. 239.7 min. 15.8 min. Average 93 94 92 94 Minimum SpO2 81 85 81 87 Desaturation Event Index 10.2 14.4 8.8 6.5 # Desat. Events below 89% 18 7 11 0 Time(%) with Saturation below 89% 3.8 0.3 3.3 0.2 Time(min.) with Saturation below 89% 16.7 1.4 14.5 0.9 Time (mins) REM (mins) NREM (mins) % of TST SpO2 Below 90% 36 10 N26 9.2 SpO2 Below 88% 8 0 0 1 Heart Rate Analysis Min (bpm) Max (bpm) Average (bpm) Awake 54 121 73 NREM 52 108 70 REM 51 89 67 Overall 51 108 69 Supplemental O2 Values Minimum O2 level: None Value Start Time End Time Battery Repairer Comments Mr. Martins slept in the right, left and supine positions. No cardiac arrhythmia or PLM's noted. No bruxism noted. CPAP was initiated at +4 CMH2O and up-titrated to a level of +12 CMH2O. A large Simplus full face mask by Debbie was used during titration. He did not use the restroom during the night. He stated that he slept well. The final report will be interpreted and signed by a sleep physician. The completed physician report will then be placed in the patient medical record. Therapy Event: Therapy (cm H20) 4 5 6 7 8 9 10 11 12 Total Time at Pressure (min.) 40.3 42.6 36.8 59.8 153.4 25.0 19.0 20.5 38.1 TST at Pressure (min.) 35.8 42.6 36.8 56.8 146.9 24.5 19.0 19.5 35.1 # Periods 1 1 1 1 1 1 1 1 1 Sleep Onset (min.) 3.5 0.0 0.0 0.0 0.0 0.0 0.0 0.0 0.0 REM Onset (min.) N/A N/A 2.1 N/A 2.0 3.1 0.0 0.0 N/A Sleep Efficiency % 88 100 100 95 95 98 100 95 92 Wakefulness (%) 11.2 0.0 0.0 5.0 4.2 2.0 0.0 4.9 7.9 Wakefulness (min.) 4.5 0.0 0.0 3.0 6.5 0.5 0.0 1.0 3.0 NREM 1 (%) 6.2 4.7 4.1 4.2 1.3 10.0 18.4 7.3 9.2 NREM 1 (min.) 2.5 2.0 1.5 2.5 2.0 2.5 3.5 1.5 3.5 NREM 2 (%) 26.1 63.3 36.0 25.6 62.5 20.4 0.0 11.5 83.0 NREM 2 (min.) 10.5 27.0 13.2 15.3 95.9 5.1 0.0 2.4 31.6 NREM 3 (%) 56.6 32.0 5.7 65.2 0.0 0.0 0.0 0.0 0.0 NREM 3 (min.) 22.8 13.6 2.1 39.0 0.0 0.0 0.0 0.0 0.0 REM (%) 0.0 0.0 54.3 0.0 31.9 67.6 81.6 76.3 0.0 REM (min.) 0.0 0.0 20.0 0.0 49.0 16.9 15.5 15.6 0.0 # Arousals 5 8 6 2 4 2 5 0 3 Arousal Index 8.4 11.3 9.8 2.1 1.6 4.9 15.8 0.0 5.1 # Snore 180 218 85 0 9 1 2 1 5 Snore Index 301.7 306.9 138.5 0.0 3.7 2.4 6.3 3.1 8.5 AHI 3.4 5.6 3.3 4.2 4.1 17.1 25.3 15.4 3.4 AHI Supine 3.4 5.6 3.3 4.2 5.0 17.1 25.3 15.4 0.0 AHI Non-Supine N/A N/A N/A N/A 3.5 N/A N/A N/A 14.8 NREM AHI 3.4 5.6 3.6 4.2 1.8 15.8 68.6 46.6 3.4 REM AHI N/A N/A 3.0 N/A 8.6 17.8 15.5 7.7 N/A RDI 3.4 5.6 4.9 4.2 4.1 17.1 25.3 15.4 3.4 # Obstructive 0 0 0 0 0 0 0 0 0 # Central Ap 0 0 0 0 0 2 0 0 1 # Mixed 0 0 0 0 0 0 0 0 0 # Hypopneas 2 4 2 4 10 5 8 5 1 RERAS 0 0 1 0 0 0 0 0 0 Total Respiratory Events 2 4 3 4 10 7 8 5 2 Time Below SpO2 89.00% (min.) 7.1 6.8 1.2 0.0 0.2 0.3 0.3 0.0 0.0 Mean NREM SpO2 (%) 90 90 92 93 93 94 96 95 95 Mean REM SpO2 (%) N/A N/A 92 N/A 94 93 94 95 N/A Mean Sleep SpO2 (%) 90 90 92 93 94 94 94 95 95 Min NREM SpO2 (%) 88 81 86 89 87 89 93 91 91 Min REM SpO2 (%) N/A N/A 87 N/A 90 85 87 92 N/A Position Supine (min.) 35.8 42.6 36.8 56.8 60.4 24.5 19.0 19.5 27.1 Position Non-supine (min.) 0.0 0.0 0.0 0.0 86.5 0.0 0.0 0.0 8.1 LM Index Sleep 8.4 26.7 29.3 4.2 9.4 2.4 12.6 9.2 3.4 LM Index NREM 8.4 26.7 46.4 4.2 9.2 0.0 0.0 0.0 3.4 LM Index REM N/A N/A 15.0 N/A 9.8 3.6 15.5 11.5 N/A Mean Heart Rate (bpm) 75 73 71 74 68 66 62 64 65 Min Heart Rate (bpm) 57 58 57 58 51 52 51 52 55
--- NOTE | 2017-08-30 17:48 | POLYSOMNOGRAPH REPORT ---
CLINICAL DATA: A 31-year-old male with BMI of 31.2 referred by Janny Mina with [facility] for a CPAP study. He had a home sleep apnea test which showed severe sleep apnea with an GIGI of 43.5. SLEEP ARCHITECTURE: Total sleep period was 432 minutes. Total sleep time was 417 minutes divided between 300 minutes of non-REM sleep and 117 minutes of REM sleep. Sleep latency was 3.5 minutes. REM latency was 81.5 minutes. Sleep efficiency was 96%. Wake after sleep onset was 15 minutes. Sleep consisted of stage N1 5%, stage N2 48%, stage N3 19%, and REM 28%. AROUSAL DATA: 35 arousals were recorded for an index of 5 per hour. PLM DATA: 79 limb movements during sleep were noted for an index of 11.4 per hour with arousal index of 0.3 per hour. RESPIRATORY DATA: The AHI was 6.3. There were 3 central apneic episodes. The longest duration of apnea was 15.8 seconds. There were 41 hypopneic episodes with mean duration of 20.2 seconds. OXIMETRY DATA: Transient hypoxemia was seen. Oxygen kenrick was 81% during non-REM sleep, the mean saturation was 93%. Time below 88% was 8 minutes. EKG: Heart rates ranged from 52-108 beats per minute. No arrhythmias were noted. AUDIOVISUAL TECH'S COMMENTS: The patient slept in the right, left, and supine position. A large Simplus full face mask by Debbie was used. The patient was titrated up to 12 cm water pressure. At this final pressure setting, he slept for 35 minutes with an AHI of 3.4. IMPRESSION: Severe sleep apnea/hypopnea corrected with CPAP 12 cm water pressure, large Simplus full face mask by Debbie. RECOMMENDATIONS: The patient should be started on the above noted treatment regimen and seen back in followup in 90 days to document efficiency and compliance. [facility]
== END | disposition home or self-care (01) ==
LOC: C.NEUR 21:00
PROVIDERS: ATTEND Nurse Practitioner Adult Health
DX: G47.33 Obstructive sleep apnea (adult) (pediatric) (principal)